=== PATIENT | female | born 1955 | race Two or more races ===

== ENCOUNTER → 2024-09-03 | Outpatient (CLI) | payer MEDICARE, MEDICAID, SELFPAY ==
--- NOTE | 2024-09-03 12:40 | XR_ITS ---
Examination: Bone densitometry Date and time of exam:September 03, 2024 1230 hours INDICATIONS: Menopause age 48 Technique: Lumbar spine and hip total bone mineralization values of an calculated. Peak reference and age match control results have been displayed. Findings: Lumbar spine total bone mineralization is0.708 gm/cm2. This is 3.1 standard deviations below peak reference. This is 1.0 standard deviations below age-matched controls. Hip total bone mineralization is 0.840 gm/cm2 This is 0.9 standard deviations below peak reference. This is 0.5 standard deviations above age-matched controls Impression: There is osteoporosis based on lumbar spine measurements. There is osteopenia based on hip measurements
== END | disposition home or self-care (01) ==
LOC: CDIM 12:14
PROVIDERS: Referring Provider Physician Assistant; Visit Provider Physician Assistant
DX: M81.0 Age-related osteoporosis without current pathological fracture (principal); M85.88 Other specified disorders of bone density and structure, other site
CPT/HCPCS: 77080

== ENCOUNTER → 2025-01-23 | Outpatient (CLI) | payer MEDICARE, MEDICAID, SELFPAY ==
--- NOTE | 2025-01-23 15:00 | XR_ITS ---
Examination: MRI lumbar spine without contrast Date and time of exam: January 23, 2025 1626 hours INDICATIONS: Low back pain radiating down both legs 3 years Technique: Multiple MRI axial and sagittal sections lumbar spine. Sagittal T2-weighted images, TR 3500, TE 118 T1 weighted transverse sections, TR 688 T8.5, T2-weighted sagittal sections T1 weighted sagittal sections TR 621, TE 30 T2 axial sections, TR 4, 190, TE 84. Findings: Grade 1 anterolisthesis L3 on L4, L4 on L5, L5 on S1 Diffuse lumbar disc desiccation Diffuse lumbar disc narrowing moderate at the lower 3 lumbar levels L5-S1 4 mm central lumbar disc bulge extending to the foraminal regions with mild bilateral L5 ganglionic compression L4-L5 4 mm central lumbar disc bulge extending to the foraminal regions with mild bilateral L4 ganglionic compression L3-L4 small foraminal disc bulges but no ganglionic compression L2-L3 7 mm left 6 mm right foraminal disc bulges but no ganglionic compression L1-L2 no disc protrusion IMPRESSION: Diffuse lumbar degenerative disc disease, moderate at the lower 3 lumbar levels L5-S1 4 mm central lumbar disc bulge with mild bilateral L5 ganglionic compression L4 L5 4 central lumbar disc bulge with mild bilateral L4 ganglionic compression
== END | disposition home or self-care (01) ==
PROVIDERS: PCP Physician Assistant; Referring Provider Physician Assistant; Visit Provider Physician Assistant
DX: M51.369 Other intervertebral disc degeneration, lumbar region without mention of lumbar back pain or lower extremity pain (principal); M51.379 Other intervertebral disc degeneration, lumbosacral region without mention of lumbar back pain or lower extremity pain; G95.20 Unspecified cord compression
CPT/HCPCS: 72148

== ENCOUNTER → 2025-04-08 | Outpatient (CLI) | payer MEDICARE, MEDICAID, SELFPAY ==
--- NOTE | 2025-04-08 | XR_ITS ---
Examination: Foot, right, 3 views Technique: AP, oblique, lateral views foot, 3 views Date and time of exam: April 08, 2025 1131 hours INDICATIONS: Right foot pain beginning 15 days ago. FINDINGS: Prominent osteopenia Moderate osteoarthritis first metatarsophalangeal joint No acute fracture 5 mm plantar bony calcaneal spur IMPRESSION: Moderate osteophytosis first metatarsophalangeal joint 5 mm plantar bony calcaneal spur
--- NOTE | 2025-04-08 | XR_ITS ---
EXAMINATION: Ankle, right 3 views . Technique: Ankle AP, oblique, lateral 3 views Date and time of exam: April 08, 2025 1131 hours INDICATIONS: Right ankle pain beginning 15 days ago. FINDINGS: Mild narrowing tibiotalar joint 5 mm plantar bony calcaneal spur Mild osteoarthritis talonavicular joint IMPRESSION: Osteoarthritis as above 5 mm plantar bony calcaneal spur. No fracture
== END | disposition home or self-care (01) ==
PROVIDERS: PCP Nurse Practitioner Family; Referring Provider Physician Assistant; Visit Provider Physician Assistant
DX: M77.31 Calcaneal spur, right foot (principal); M25.871 Other specified joint disorders, right ankle and foot; M19.071 Primary osteoarthritis, right ankle and foot
CPT/HCPCS: 73610; 73630